=== PATIENT | female | born 1980 | race Caucasian/White ===

== ENCOUNTER 2017-10-02 16:33 | Emergency (ER) | payer OTHER ==
[~2017-10-02] VITALS: Ht 165.1 cm; Wt 104.3 kg
[2017-10-02] MEDS ORDERED: TETRACAINE HCL 0.5% OPHT DROP 2 ML BOTTLE OP ONE (17:15)
[2017-10-02] MEDS ORDERED: FLUORESCEIN SODIUM 1 MG STRIP OP ONE (17:15)
[2017-10-02] MEDS ORDERED: TETRACAINE HCL 0.5% OPHT DROP 2 ML BOTTLE ONE (17:29)
[2017-10-02] MEDS ORDERED: FLUORESCEIN SODIUM 1 MG STRIP ONE (17:29)
--- NOTE | 2017-10-02 18:15 | NUR ---
PT WAS EVALUATED BY DR PEGUERO. PT WAS D/C TO HOME AFTER EVALUATION. D/C INSTRUCTIONS GIVEN TO THE PT BY DR PEGUERO.
[2017-10-02 18:18] VITALS: BP 136/77
== END 2017-10-02 18:19 | disposition home or self-care (01) ==
LOC: ER 16:35
DX: H10.89 Other conjunctivitis (principal)
CPT/HCPCS: 82962 ×2; 99283; A4663

== ENCOUNTER 2019-05-28 23:19 | Emergency (ER) | payer OTHER ==
[~2019-05-28] VITALS: Ht 162.6 cm; Wt 88.5 kg
[2019-05-28] MEDS ORDERED: diphenhydrAMINE 25 MG CAP PO ONE ×2 (23:41→23:45)
--- NOTE | 2019-05-28 23:45 | NUR ---
Patient discharged to home in stable conditon. Written and verbal after care instructions given. Patient verbalizes understanding of instructions. Pt. d/c per MD order, d/c papers signed, all belongings w/ pt., ID band removed, ambulated off unit w/ steady gait, NAD
== END 2019-05-28 23:58 | disposition home or self-care (01) ==
LOC: ER 23:19
DX: S90.861A Insect bite (nonvenomous), right foot, initial encounter (principal); W57.XXXA Bitten or stung by nonvenomous insect and other nonvenomous arthropods, initial encounter; Y93.89 Activity, other specified; Y92.89 Other specified places as the place of occurrence of the external cause; Y99.8 Other external cause status
CPT/HCPCS: 99282; Q0163; A4663

== ENCOUNTER 2021-08-25 14:22 | Emergency (ER) | payer OTHER ==
[~2021-08-25] VITALS: Ht 162.6 cm; Wt 90.7 kg
[2021-08-25] MEDS ORDERED: DIPH28.33 TP (14:53)
[2021-08-25] MEDS ORDERED: NAPH15DR47 OP (14:55)
--- NOTE | 2021-08-25 15:00 | NUR ---
Patient discharged to home in stable condition. Written and verbal after care instructions given. Patient verbalizes understanding of instructions. Stressed follow up or return to ER for worsening s/s.
--- NOTE | 2021-08-25 15:00 | NUR ---
PT SEEN AND EVALUATED BY DR MO.
== END 2021-08-25 15:01 | disposition home or self-care (01) ==
LOC: ER 14:22
DX: L25.0 Unspecified contact dermatitis due to cosmetics (principal); H01.112 Allergic dermatitis of right lower eyelid; H01.115 Allergic dermatitis of left lower eyelid; H05.223 Edema of bilateral orbit; E66.9 Obesity, unspecified; Z68.34 Body mass index [BMI] 34.0-34.9, adult; R03.0 Elevated blood-pressure reading, without diagnosis of hypertension
CPT/HCPCS: A4663